=== PATIENT | male | born 1980 | race Caucasian/White ===

== ENCOUNTER 2021-07-13 11:10 | Emergency (ER) | payer OTHER, SELFPAY ==
[2021-07-13 11:30] VITALS: BP 126/93; PULSE 100; RESP 18; TEMP 36.7; O2SAT 98; BMI 22.8
--- NOTE | 2021-07-13 11:39 | W.ED.FALL ---
HPI - Fall General: Chief Complaint: Fall Stated Complaint: Injury to right side/ribs Time Seen by Provider: 07/13/21 11:27 History of Present Illness: HPI Narrative: Patient is a 41-year-old male comes to the ED with right sided rib pain and mid back pain. Patient says 2 days ago he fell while getting out of the shower and the right side of his ribs hit the counter. He was having right-sided rib pain since then. This morning he went hunting and shot a deer and while he was trying to drag a deer it worsened his right rib and back pain. Says it hurts whenever he takes a deep breath. He took 1000 mg of Tylenol approximately 2 hours ago. Denies any hemoptysis or shortness of breath. Associated symptoms-after fall: Denies abdominal pain, chest pain, headache(s), hematuria or neck pain Review of Systems Const: Denies: fever(s), chills or fatigue Eyes: Denies: change in vision or eye discomfort ENMT: Denies: throat pain, odynophagia, nasal discharge or nasal congestion Card: Denies: chest pain, palpitations, edema, swelling of feet/ankles, dyspnea on exertion or orthopnea Resp: Reports: pain on inspiration; Denies: dyspnea, productive cough or non-productive cough GI: Denies: abdominal pain, nausea, vomiting, diarrhea, constipation or hematochezia : Denies: flank pain, difficulty urinating, dysuria or hematuria Musc: Reports: back pain; Denies: neck pain or extremity swelling Skin/Breast: Denies: rash or new lesions Neuro: Denies: headache(s), numbness in extremities or weakness in extremities Physical Exam Const: COMMON NORMALS: patient oriented x3, healthy appearing and alert GENERAL APPEARANCE: cooperative and comfortable HENMT: COMMON NORMALS: normocephalic HEAD & SCALP: normocephalic MOUTH: Normal oral and palatal mucosa present THROAT: posterior oropharynx normal and uvula midline Neck/C-Spine: COMMON NORMALS: supple GENERAL: Yes normal visual inspection Chest: CHEST: Yes tenderness rib right anterior-axillary line involving the 6th rib, involving the 7th rib and involving the 8th rib Resp: COMMON NORMALS: normal respiratory effort, No retractions, No use of accessory muscles and clear to auscultation bilaterally AUSCULTATION: clear to auscultation bilaterally Cardio: COMMON NORMALS: regular rate, regular rhythm, S1 normal heart sound present, S2 normal heart sound present, No gallops present (Cardio), No clicks present (Cardio), No murmurs present (Cardio) and Peripheral pulses 2+ throughout RATE: regular rate RHYTHM: regular rhythm HEART SOUNDS: S1 normal heart sound present and S2 normal heart sound present PERIPHERAL PULSES: Peripheral pulses 2+ throughout GI: COMMON NORMALS: Normal to inspection, nondistended, normoactive bowel sounds present, Soft to palpation, non-tender and no masses PALPATION: Yes Soft to palpation : COMMON NORMALS: Yes no CVA tenderness BLADDER/KIDNEY EXAM: Yes no CVA tenderness Back/Pelvis: COMMON NORMALS: no CVA tenderness THORACIC SPINE/UPPER BACK: Yes pain with ROM and Yes paraspinal muscle tenderness Thoracic paraspinal muscle tenderness: right Extremity: COMMON NORMALS: normal to inspection Neuro: COMMON NORMALS: patient oriented x3 and moves all extremities SENSORIUM/ORIENTATION: Yes alert Skin: GENERAL SKIN EXAM: dry skin Course Vital Signs: Vital signs: Vital Signs Temperature 98.0 F 07/13/21 11:30 Pulse Rate 90 07/13/21 14:22 Respiratory Rate 18 07/13/21 14:22 Blood Pressure 128/79 07/13/21 14:22 Pulse Oximetry 98 07/13/21 14:22 MDM - Fall MDM Narrative: Medical decision making narrative: Patient is a 41-year-old male who comes to the ED with right rib and right mid back pain. Symptoms started 2 days ago after he had a fall when getting out of bathtub and right side hit the counter. Pain in right ribs with deep inspiration. Vitals stable. Patient appeared very uncomfortable and in pain. Patient has some right rib right mid thoracic tenderness upon palpation. Lungs are clear to auscultation bilaterally. Rest of exam was benign. X-ray of thoracic spine showed no acute fractures or findings. Right rib x-ray showed no acute fractures or findings. Patient was diagnosed with rib pain on right side and discharged home with a prescription for ibuprofen 800 mg and hydrocodone 5/325 mg 8 tablets. Return to ED precautions given. He was told to rest and ice sore areas to help with symptoms. Follow-up with PCP in 7 to 10 days for reevaluation. Patient understood and agreed with plan. Imaging Data^: CXR: Attestation: I personally reviewed and interpreted this imaging study as follows: Radiologist's impression: [facility] [address] [place] [address]. [place] [address] XRay Report Signed Patient: Tomás Sales Unit #: [id number] : 1980 Age/Sex: 41 / M ADM Date: 07/13/21 Loc: ER Room/Bed: Attending Dr: Ordering Provider/Ordering MD: Dean Jacobson Date of Service: 07/13/21 Procedure(s): XR ribs RT mn 3V w CXR1V 23233 Accession Number(s): [id number] Report Number: [id number] PROCEDURE INFORMATION: Exam: XR Right Ribs with PA Chest Exam date and time: 07/13/2021 11:40 AM Age: 41 years old Clinical indication: Injury or trauma; Fall; Rib area; Blunt trauma (contusions or hematomas); Additional info: Right rib pain after fall TECHNIQUE: Imaging protocol: XR Right ribs with PA chest. Views: 3 views COMPARISON: No relevant prior studies available. FINDINGS: Lungs: Unremarkable. No consolidation. Pleural spaces: Unremarkable. No pleural effusion. No pneumothorax. Heart/Mediastinum: Unremarkable. No cardiomegaly. Bones/joints: Unremarkable. XR/XR ribs RT mn 3V w CXR1V [id number] IMPRESSION: No acute findings. Radiation Dose CTDIVOL = (mGy): DLP = (mGy-cm) Dictated By: Miller Desai Signed By: Miller Desai Signed Date/Time: 07/13/21 1358 DD/ 1140 Xray Ortho: Attestation: I personally reviewed and interpreted this imaging study as follows: Radiologist's impression: [facility] [address] [facility] [place] [address] XRay Report Signed Patient: Tomás Sales Unit #: [id number] : 1980 Age/Sex: 41 / M ADM Date: 07/13/21 Loc: ER Room/Bed: Attending Dr: Ordering Provider/Ordering MD: Dean Jacobson Date of Service: 07/13/21 Procedure(s): XR thoracic spine 3V* [id number] Accession Number(s): [id number] Report Number: [id number] PROCEDURE INFORMATION: Exam: XR Thoracic Spine Exam date and time: 07/13/2021 11:40 AM Age: 41 years old Clinical indication: Injury or trauma; Fall; Blunt trauma (contusions or hematomas); Additional info: Mid back pain after fall TECHNIQUE: Imaging protocol: XR of the thoracic spine. Views: 3 views. COMPARISON: No relevant prior studies available. FINDINGS: Bones/joints: Normal. No acute fracture. Normal alignment. Soft tissues: Unremarkable. XR/XR thoracic spine 3V* [id number] IMPRESSION: No acute findings. Radiation Dose CTDIVOL = (mGy): DLP = (mGy-cm) Dictated By: Miller Desai Signed By: Miller Desai Signed Date/Time: 07/13/21 1356 DD/ 1140 Discharge Plan Discharge Patient Disposition: Home Clinical Impression: Rib pain on right side Condition: Stable Prescriptions: New ibuprofen 800 mg tablet 800 mg PO Q8H PRN (Reason: pain) Qty: 20 RF: 0 Discharge Orders: Discharge ED (Routine); Ordered 07/13/21 Ordered By: Dean Jacobson Referrals: [facility] [Other] Discharge Diet: Regular Discharge Activity: Increase activity as tolerated Patient Instructions: Rib Contusion (ED), Opioid Safety Activity Restrictions/Additional Instructions: Follow-up with medical provider as directed in 7 to 10 days for reevaluation. Take medications as prescribed. Rest and limit lifting activity for the next couple days. Apply cold pack on sore ribs to help with symptoms. Return to the ER or your medical provider if condition worsens. Please read and understand discharge instructions. Thank you for choosing [facility] for your healthcare needs today. Please realize this is an emergency room and that we are providing you with a medical screening exam and this may not be complete and all inclusive of all the testing and or work up that you may need to determine your ailment or severity of your illness. It is very important that you follow up as instructed or that you return to the Emergency Department should you have concerns or if your condition changes or worsens in any way. Coding Level of Care Code ED Dredge Pipeman for Jerome Fwd Exam Comprehensive
[2021-07-13] MEDS: HYDROcodone-acetaminophen 7.5-325 mg Tablet 1 TAB PO (12:49)
[2021-07-13 14:22] VITALS: BP 128/79; PULSE 90; RESP 18; O2SAT 98
== END 2021-07-13 14:35 | disposition home or self-care (01) ==
PROVIDERS: Emergency Provider Physician Assistant
DX: R07.81 Pleurodynia (principal)
CPT/HCPCS: 71101; 72072; 99283